=== PATIENT | female | born 1975 | race Caucasian/White ===

== ENCOUNTER 2017-08-11 10:28 | Inpatient (IN) | payer BC, OTHER ==
[~2017-08-11] VITALS: Ht 172.7 cm; Wt 78.9 kg
--- NOTE | 2017-08-11 10:35 | NUR ---
DOMINGA AND BRANDY FROM [facility] SP SEIZURE-- REPORTED HITTING HEAD ON THE FLOOR. PATIENT IS AAO4. APPEARS IN NO APPARENT DISTRESS., RESPIRATION EVEN AND UNLABORED. SKIN IS WARM TO TOUCH AND NON DIAPHORETIC. AFEBRILE/
[2017-08-11] MEDS ORDERED: ONDANSETRON HCL/PF 4 MG/2 ML VIAL ONE (10:48)
[2017-08-11] MEDS ORDERED: ONDANSETRON HCL/PF 4 MG/2 ML VIAL IVP ONE (11:00)
[2017-08-11] MEDS ORDERED: IV NS 0.9% 1,000 ML BAG IV ONE (11:00)
[2017-08-11] MEDS ORDERED: Thiamine 100 MG in IV D5W 50 ML IV SCH (11:00)
[2017-08-11 11:16] LABS: BASOPHILS % (AUTO) 0.3 % (0.0-2.0); EOSINOPHILS % (AUTO) 0.8 % (0.0-6.0); HEMATOCRIT 37 % (33-45); HEMOGLOBIN 12.1 g/dL (11.5-14.8); LYMPHOCYTES # (AUTO) 0.8 /CMM (0.8-4.8); LYMPHOCYTES % (AUTO) 15.3 % (20.0-44.0); MEAN CORPUSCULAR HEMOGLOBIN 31 PG (26.0-33.0); MEAN CORPUSCULAR HGB CONC 33 g/dl (31.0-36.0); MEAN CORPUSCULAR VOLUME 95 fL (82-100); MONOCYTES # (AUTO) 0.3 /CMM (0.1-1.30); MONOCYTES % (AUTO) 6.2 % (2.0-12.0); NEUTROPHILS # (AUTO) 4.1 /CMM (1.8-8.9); NEUTROPHILS % (AUTO) 77.4 % (43.0-81.0); PLATELET COUNT (AUTO) 130 /CMM (150-450); RED BLOOD CELL COUNT(AUTO) 3.88 MIL/uL (4.0-5.2); WHITE BLOOD COUNT (AUTO) 5.2 K/uL (4.3-11.0)
[2017-08-11 11:26] LABS: CALCIUM, SERUM 9.2 mg/dL (8.5-10.1); CARBON DIOXIDE 22 mmol/L (21-32); CHLORIDE 98 mmol/L (98-107); CREATININE 0.9 mg/dL (0.6-1.3); GLUCOSE 175 mg/dL (74-106); SODIUM SERUM 133 mmol/L (136-145); UREA NITROGEN, BLOOD 13 mg/dL (7-18)
[2017-08-11 11:30] LABS: INR 0.93 (0.87-1.13); PROTHROMBIN TIME 9.7 SECS (9.5-12.7)
[2017-08-11 11:31] LABS: ALANINE AMINOTRANSFERASE 64 U/L (12-78); ALBUMIN 3.9 g/dL (3.4-5.0); ALCOHOL, BLOOD < 3 mg/dL (0-0); ALKALINE PHOSPHATASE 64 U/L (46-116); ASPARTATE AMINOTRANSFERASE 62 U/L (15-37); BILIRUBIN,DIRECT 0.3 mg/dL (0.0-0.2); BILIRUBIN,TOTAL 0.7 mg/dL (0.2-1.0); TOTAL PROTEIN, SERUM 7.6 g/dL (6.4-8.2)
[2017-08-11] MEDS ORDERED: LORAZEPAM INJ 2 MG/ML VIAL ONE ×2 (11:54→14:27)
[2017-08-11] MEDS ORDERED: POTASSIUM CHLORIDE 20 MEQ TAB.PRT.SR PO ONE ×2 (12:00→12:04)
[2017-08-11] MEDS ORDERED: LORAZEPAM INJ 2 MG/ML VIAL IV ONE ×3 (12:00→16:00)
[2017-08-11] MEDS ORDERED: METH250T11 PO (12:02)
[2017-08-11] MEDS ORDERED: Magnesium 1GM/D5W 100ML PREMIX 200 ML IV ONE (12:04)
[2017-08-11] MEDS: Magnesium 1GM/D5W 100ML PREMIX 100 ML IV SCH ×2 (12:12→13:15)
--- NOTE | 2017-08-11 14:33 | NUR ---
CALLED DR GÓMEZ FOR PANEL
--- NOTE | 2017-08-11 15:36 | NUR ---
REPORT GIVEN TO ARMAND SANDERS
--- NOTE | 2017-08-11 15:41 | NUR ---
REPORT GIVEN TO ARMAND CARTAGENA FOR POOL TELE 108.
[2017-08-11 16:00] VITALS: BP 136/83
[2017-08-11] MEDS ORDERED: MAG HYDROX/AL HYDROX/SIMETH 30 ML UDC PO PRN (16:00)
[2017-08-11] MEDS ORDERED: MAGNESIUM HYDROXIDE 30 ML UDC PO PRN (16:00)
[2017-08-11] MEDS ORDERED: Z GUARD REMEDY 2 OZ OINT TP PRN (16:00)
[2017-08-11] MEDS ORDERED: ONDANSETRON HCL/PF 4 MG/2 ML VIAL IVP PRN (16:00)
[2017-08-11] MEDS ORDERED: ZOLPIDEM TARTRATE 5 MG TABLET PO PRN (16:00)
--- NOTE | 2017-08-11 16:00 | NUR ---
RN NOTES RECEIVED PATIENT FROM ER ALERT, AWAKE, ORIENTED X4 WITH BREATHING NORMAL, EVEN AND UNLABORED. NO SOB NOTED. NO ACUTE DISTRESS NOTED. KEPT CLEAN, DRY AND COMFORTABLE. ALL NEEDS ATTENDED. SAFETY MEASURE OBSERVED. CALL LIGHT WITH IN REACH. WILL CONT TO MONITOR.
[2017-08-11] MEDS: METHYLDOPA (250MG) 250 MG TABLET PO SCH (16:53)
[2017-08-11] MEDS: IV NS 0.9% 1,000 ML IV PRN (17:13)
[2017-08-11] MEDS: ACETAMINOPHEN 325 MG TABLET PO PRN (18:51)
--- NOTE | 2017-08-11 18:57 | NUR ---
RN NOTES PATIENT ENDORSED TO NEXT SHIFT IN STABLE CONDITION WITH BREATHING NORMAL, EVEN AND UNLABORED, NO SOB NOTED. NO ACUTE DISTRESS NOTED. KEPT CLEAN, DRY AND COMFORTABLE. ALL NEEDS ATTENDED. SAFETY MEASURE OBSERVED. CALL LIGHT WITH IN REACH. WILL CONT TO MONITOR.
--- NOTE | 2017-08-11 19:30 | NUR ---
MS RN INITIAL NOTES RECEIVED PATIENT AWAKE A/OX4, ABLE TO MAKE NEEDS KNOWN. SPEECH SHAKY BUT UNDERSTANDABLE. C/O 8/10 HEADACHE. DENIES N/V. SKIN WARM AND DRY TO TOUCH. STEADY AMBULATION. WITH IVF RUNNING. INFORMED TO USE CALL LIGHT TO CALL FOR ASSISTANCE. PATIENT VERBALIZED UNDERSTANDING. SIDE RAILS UP AND LOCKED. BED KEPT AT LOWEST POSITION. CALL LIGHT KEPT WITHIN EASY REACH. WILL CONTINUE TO MONITOR.
--- NOTE | 2017-08-11 19:33 | NUR ---
RN NOTE. RECEIVED THE PT REST ON THE BED. AWAKE, ALERT, FOLLOW COMMANDS. PT ON ROOM AIR. SAT 98%. IV LT HAND 22G. IVF NS 100ML/H. SEIZURE PRECAUTION INSTATED. . WILL CONTINUE TO MONITOR VITALS.
[2017-08-11 20:00] VITALS: BP 122/75
[2017-08-11] MEDS: LORAZEPAM 1 MG TABLET PO PRN (20:29)
[2017-08-11] MEDS: HYDROCODONE/APAP 5/325MG 1 EACH TABLET PO PRN (21:29)
[2017-08-12] MEDS: IV NS 0.9% 1,000 ML IV PRN ×3 (02:42→22:21)
[2017-08-12] MEDS: LORAZEPAM 1 MG TABLET PO PRN ×5 (02:46→21:00)
[2017-08-12 04:00] VITALS: BP 120/75
[2017-08-12] MEDS: HYDROCODONE/APAP 5/325MG 1 EACH TABLET PO PRN ×2 (05:59→09:55)
[2017-08-12 06:26] LABS: BASOPHILS % (AUTO) 0.6 % (0.0-2.0); EOSINOPHILS # (AUTO) 0.1 /CMM (0.0-0.7); EOSINOPHILS % (AUTO) 2.7 % (0.0-6.0); HEMATOCRIT 31 % (33-45); HEMOGLOBIN 10.5 g/dL (11.5-14.8); LYMPHOCYTES # (AUTO) 1.9 /CMM (0.8-4.8); LYMPHOCYTES % (AUTO) 45.9 % (20.0-44.0); MEAN CORPUSCULAR HEMOGLOBIN 33 PG (26.0-33.0); MEAN CORPUSCULAR HGB CONC 34 g/dl (31.0-36.0); MEAN CORPUSCULAR VOLUME 95 fL (82-100); MONOCYTES # (AUTO) 0.3 /CMM (0.1-1.30); MONOCYTES % (AUTO) 6.2 % (2.0-12.0); NEUTROPHILS # (AUTO) 1.8 /CMM (1.8-8.9); NEUTROPHILS % (AUTO) 44.6 % (43.0-81.0); PLATELET COUNT (AUTO) 112 /CMM (150-450); RDW COEFFICIENT OF VARIATION 12.9 (11.5-15.0); RED BLOOD CELL COUNT(AUTO) 3.24 MIL/uL (4.0-5.2); WHITE BLOOD COUNT (AUTO) 4.1 K/uL (4.3-11.0)
[2017-08-12 06:46] LABS: CALCIUM, SERUM 8.1 mg/dL (8.5-10.1); CREATININE 0.6 mg/dL (0.6-1.3); MAGNESIUM 1.8 mg/dL (1.8-2.4); PHOSPHORUS 3.5 mg/dL (2.5-4.9); POTASSIUM 3.6 mmol/L (3.5-5.1)
--- NOTE | 2017-08-12 07:52 | NUR ---
MS RN CLOSING NOTES NO SIGNIFICANT CHANGES OVERNIGHT. DENIES SOB, DENIES N/V. NO SEIZURE ACTIVITY. ALL NEEDS ANTICIPATED AND MET. PAIN MANAGED NEEDED. PATIENT VERBALIZED REQUEST FOR STD PANEL, MORNING SHIFT NURSE MADE AWARE OF PATIENTS REQUEST. INFORMED PATIENT TO LET MD KNOW UPON ROUNDS. IVF RUNNING. SIDE RAILS UP AND LOCKED. BED KEPT AT LOWEST POSITION. CALL LIGHT KEPT WITHIN EASY REACH. CONTINUITY OF CARE ENDORSED TO AM NURSE.
[2017-08-12 08:00] VITALS: BP 128/89
--- NOTE | 2017-08-12 08:00 | NUR ---
MS RN INITIAL NOTES RN RECEIVED PATIENT AWAKE A/OX4, PT ABLE TO MAKE NEEDS KNOWN. PT SPEECH CHOPPY BUT RN ABLE TO UNDERSTAND. PT C/O MILD HEADACHE STATES THE NORCO HELPS . DENIES N/V. SKIN WARM AND DRY TO TOUCH. PT IVF RUNNING. PT INFORMED TO USE CALL LIGHT TO CALL FOR ASSISTANCE. PATIENT VERBALIZED UNDERSTANDING. SIDE RAILS UP AND LOCKED. BED KEPT AT LOWEST POSITION. CALL LIGHT KEPT WITHIN EASY REACH. WILL CONTINUE TO MONITOR. PATIENT ALSO REQUEST ATIVAN AND NORCO WHEN AVAILABLE
[2017-08-12] MEDS: THIAMINE HCL 100 MG TABLET PO SCH (08:55)
[2017-08-12] MEDS: FOLIC ACID 1 MG TABLET PO SCH (08:55)
[2017-08-12] MEDS: METHYLDOPA (250MG) 250 MG TABLET PO SCH ×3 (08:58→17:28)
[2017-08-12] MEDS: ACETAMINOPHEN 325 MG TABLET PO PRN (10:34)
[2017-08-12 12:00] VITALS: BP 134/89
[2017-08-12] MEDS: FAMOTIDINE (20 MG) 20 MG TABLET PO SCH (12:35)
[2017-08-12] MEDS: MULTIVITAMINS,THERAGRAN 1 UDTAB TABLET PO SCH (13:57)
[2017-08-12] MEDS: HYDROCODONE/APAP 10/325MG 1 EA TABLET PO PRN ×2 (13:58→19:36)
[2017-08-12 16:00] VITALS: BP 135/89
--- NOTE | 2017-08-12 16:00 | NUR ---
RN NOTE PATIENT IS REQUEST PRN PAIN MEDICATION AND ALSO ANTI ANXIETY MEDICATION AROUND THE CLOCK , RN PROVIDES PATIENT WITH EDUCATION IN REGARDS TO NON PHARMACOLOGICAL WAYS TO HELP PAIN RELIEF. PATIENT STATES SHE WILL CONTINUE TO REQUEST THE MEDICATION PRN WHEN IT IS TIME FOR THE PAIN MEDICATION ADMINISTRATION RN WILL ENDORSE TO PM RN , RN HAS NOTIFIED DIRECTOR OF MOBILE MARKETING NILE AND DIRECTOR OF MOBILE MARKETING INTERNS IN REGARDS TO PATIENT DRUG SEEKING
[2017-08-12] MEDS: DOCUSATE SODIUM 100 MG CAPSULE PO SCH (17:28)
--- NOTE | 2017-08-12 19:09 | NUR ---
MS RN CLOSING NOTES NO SIGNIFICANT CHANGES THROUGHOUT THE DAY DENIES SOB, DENIES N/V. NO SEIZURE ACTIVITY. ALL NEEDS ANTICIPATED AND MET. PAIN MANAGED NEEDED PATIENT PAIN MEDICATION INCREASED PER HER REQUEST . IVF RUNNING. SIDE RAILS UP AND LOCKED. BED KEPT AT LOWEST POSITION. CALL LIGHT KEPT WITHIN EASY REACH. CONTINUITY OF CARE ENDORSED TO PM NURSE.
--- NOTE | 2017-08-12 19:30 | NUR ---
MS RN INITIAL NOTES RECEIVED PATIENT AWAKE A/OX4, ABLE TO MAKE NEEDS KNOWN. APPEARS ANXIOUS. C/O /10 HEADACHE PAIN, LITTLE NAUSEA. DENIES SOB. EXPLAINED SIDE EFFECTS OF NARCOTICS, PATIENT VERBALIZED UNDERSTANDING. PER REPORT, PATIENT HAS BEEN ASKING FOR ATIVAN AND NORCO AROUND THE CLOCK. SKIN WARM AND DRY TO TOUCH. IVF RUNNING. SIDE RAILS UP AND LOCKED. BED KEPT AT LOWEST POSITION. CALL LIGHT KEPT WITHIN EASY REACH. WILL CONTINUE TO MONITOR.
[2017-08-12 20:00] VITALS: BP 135/85
[2017-08-13] MEDS: HYDROCODONE/APAP 10/325MG 1 EA TABLET PO PRN ×6 (00:57→22:45)
[2017-08-13 04:00] VITALS: BP 145/77
--- NOTE | 2017-08-13 06:24 | NUR ---
MS RN CLOSING NOTES NO SIGNIFICANT CHANGES OVERNIGHT. PAIN MONITORED AND MANAGED NEEDED. NO SOB. NO SEIZURE ACTIVITY NOTED. IVF RUNNING. ALL NEEDS ANTICIPATED AND MET. SIDE RAILS UP AND LOCKED. BED KEPT AT LOWEST POSITION. CALL LIGHT KEPT WITHIN EASY REACH. WILL ENDORSE CONTINUITY OF CARE TO AM NURSE.
[2017-08-13 06:35] LABS: BASOPHILS % (AUTO) 0.8 % (0.0-2.0); EOSINOPHILS % (AUTO) 2.3 % (0.0-6.0); HEMATOCRIT 30 % (33-45); HEMOGLOBIN 10.4 g/dL (11.5-14.8); LYMPHOCYTES % (AUTO) 50.3 % (20.0-44.0); MEAN CORPUSCULAR HEMOGLOBIN 33 PG (26.0-33.0); MEAN CORPUSCULAR HGB CONC 34 g/dl (31.0-36.0); MEAN CORPUSCULAR VOLUME 95 fL (82-100); MONOCYTES % (AUTO) 4.4 % (2.0-12.0); NEUTROPHILS # (AUTO) 1.3 /CMM (1.8-8.9); NEUTROPHILS % (AUTO) 42.2 % (43.0-81.0); PLATELET COUNT (AUTO) 104 /CMM (150-450); RED BLOOD CELL COUNT(AUTO) 3.18 MIL/uL (4.0-5.2); WHITE BLOOD COUNT (AUTO) 3.2 K/uL (4.3-11.0)
[2017-08-13 06:36] LABS: EOSINOPHILS # (AUTO) 0.1 /CMM (0.0-0.7); LYMPHOCYTES # (AUTO) 1.6 /CMM (0.8-4.8); MONOCYTES # (AUTO) 0.1 /CMM (0.1-1.30)
[2017-08-13 06:47] LABS: CALCIUM, SERUM 8.1 mg/dL (8.5-10.1); CREATININE 0.6 mg/dL (0.6-1.3); MAGNESIUM 1.6 mg/dL (1.8-2.4); POTASSIUM 3.6 mmol/L (3.5-5.1)
--- NOTE | 2017-08-13 07:30 | NUR ---
MS RN INITIAL NOTES RN RECEIVED PATIENT AWAKE A/OX4 IN BED , PT ABLE TO MAKE NEEDS KNOWN. PT SPEECH CLEAR WITH MINIMAL STUTTER BUT RN ABLE TO UNDERSTAND. PT C/O MILD HEADACHE. DENIES NAUSEA AT THIS TIME. PT SKIN WARM AND DRY TO TOUCH. PT IVF RUNNING. PT INFORMED TO USE CALL LIGHT TO CALL FOR ASSISTANCE. PATIENT VERBALIZED UNDERSTANDING. SIDE RAILS UP AND LOCKED. BED KEPT AT LOWEST POSITION. CALL LIGHT KEPT WITHIN EASY REACH. RN WILL CONTINUE TO MONITOR THROUGHOUT THE DAY .
[2017-08-13 08:00] VITALS: BP 166/78
[2017-08-13] MEDS: FAMOTIDINE (20 MG) 20 MG TABLET PO SCH (08:31)
[2017-08-13] MEDS: METHYLDOPA (250MG) 250 MG TABLET PO SCH ×3 (08:31→17:58)
[2017-08-13] MEDS: THIAMINE HCL 100 MG TABLET PO SCH (08:31)
[2017-08-13] MEDS: FOLIC ACID 1 MG TABLET PO SCH (08:31)
[2017-08-13] MEDS: MULTIVITAMINS,THERAGRAN 1 UDTAB TABLET PO SCH (08:31)
[2017-08-13] MEDS: DOCUSATE SODIUM 100 MG CAPSULE PO SCH ×2 (08:31→17:58)
[2017-08-13] MEDS: LORAZEPAM 1 MG TABLET PO PRN ×2 (08:39→17:58)
[2017-08-13] MEDS: IV NS 0.9% 1,000 ML IV PRN ×2 (08:39→23:09)
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
[2017-08-13] MEDS: Magnesium 1GM/D5W 100ML PREMIX 100 ML IV SCH ×2 (12:04→13:45)
[2017-08-13 16:00] VITALS: BP 130/65
--- NOTE | 2017-08-13 18:45 | NUR ---
MS RN CLOSING NOTES NO SIGNIFICANT CHANGES THROUGHOUT THE DAY DENIES SOB, DENIES N/V. NO SEIZURE ACTIVITY. ALL NEEDS ANTICIPATED AND MET. PAIN MANAGED NEEDED IVF RUNNING. SIDE RAILS UP AND LOCKED. BED KEPT AT LOWEST POSITION. CALL LIGHT KEPT WITHIN EASY REACH. CONTINUITY OF CARE ENDORSED TO PM NURSE.
--- NOTE | 2017-08-13 19:05 | NUR ---
RN OPENING NOTES RECEIVED REPORT FROM STEPHANY ACUNA. PATIENT A/A/O X4, ABLE TO MAKE NEEDS KNOWN. BREATHING EVEN & UNLABORED, DENIES ANY SOB OR DIFFICULTY BREATHING. PULSES PRESENT. ON ROOM AIR. RIGHT FOREARM IV #20 INTACT & PATENT W/ DRESSING CDI W/ IVF NS @ 100 ML/HR. PATIENT IS ABLE TO AMBULATE W/ BRP. SAFETY MEASURES IN PLACE W/ SIDE RAILS UP, BED LOCKED IN LOWEST POSITION & CALL LIGHT WITHIN REACH. @ BEDSIDE. WILL CONTINUE TO MONITOR.
[2017-08-13 20:00] VITALS: BP 163/94
[2017-08-14 04:00] VITALS: BP 145/87
[2017-08-14] MEDS: LORAZEPAM 1 MG TABLET PO PRN ×3 (04:27→16:34)
[2017-08-14] MEDS: HYDROCODONE/APAP 10/325MG 1 EA TABLET PO PRN ×3 (04:27→13:46)
[2017-08-14 06:51] LABS: CALCIUM, SERUM 8.5 mg/dL (8.5-10.1); CREATININE 0.6 mg/dL (0.6-1.3); MAGNESIUM 1.7 mg/dL (1.8-2.4); POTASSIUM 3.2 mmol/L (3.5-5.1)
--- NOTE | 2017-08-14 07:45 | NUR ---
RN INITIAL NOTE RECEIVED PT IN NO ACUTE DISTRESS IN BED. PT IS A/O X 4 AND ABLE TO MAKE NEEDS KNOWN. PT NOT C/O ANY SOB, DIFFICULTY BREATHING OR PAIN AT THIS TIME. PT HAS RFA 20G THAT IS CLEAN DRY INTACT AND PATENT WITH NS @ 100 ML/HR. BED IN LOW LOCK POSITION WITH LOW LOCK POSITION WITH RIALS UP X 2. CALL LIGHT WITHIN REACH AND ALL SAFETY MEASURES ENSURED AND CARRIED OUT. WILL CONTINUE TO MONITOR PT.
[2017-08-14 08:00] VITALS: BP 142/92
[2017-08-14] MEDS: METHYLDOPA (250MG) 250 MG TABLET PO SCH ×3 (09:00→16:35)
[2017-08-14] MEDS: FAMOTIDINE (20 MG) 20 MG TABLET PO SCH (09:01)
[2017-08-14] MEDS: THIAMINE HCL 100 MG TABLET PO SCH (09:01)
[2017-08-14] MEDS: FOLIC ACID 1 MG TABLET PO SCH (09:01)
[2017-08-14] MEDS: MULTIVITAMINS,THERAGRAN 1 UDTAB TABLET PO SCH (09:01)
[2017-08-14] MEDS: DOCUSATE SODIUM 100 MG CAPSULE PO SCH ×2 (09:03→16:34)
[2017-08-14] MEDS: IV NS 0.9% 1,000 ML IV PRN (09:35)
[2017-08-14] MEDS: Magnesium 1GM/D5W 100ML PREMIX 100 ML IV SCH ×2 (10:36→11:34)
[2017-08-14] MEDS: POTASSIUM CHLORIDE 20 MEQ TAB.PRT.SR PO SCH ×2 (10:37→11:34)
--- NOTE | 2017-08-14 15:33 | NUR ---
RN NOTE TRANSFER CARE TO TYLER RN FOR CONTINUITY OF CARE.
[2017-08-14 16:35] VITALS: BP 143/83
--- NOTE | 2017-08-14 16:43 | NUR ---
RN MS CLOSING NOTE PT RECEIVED IN NO ACUTE DISTRESS AT THIS TIME. IVF AND IV D/C. ATIVAN GIVEN AT 1630 WELL 1700 MEDICATIONS BEFORE LEAVING WITH . ALL D/C PAPERS SIGNED. VITALS WNL. ALL QUESTIONS ANSWERED AND INFO GIVEN. WILL DRIVE PATIENT HOME.
== END 2017-08-14 16:55 | disposition home or self-care (01) | DRG 896 ==
LOC: ER 10:33 → TELE1 15:48 → MEDSG1 21:33
PROVIDERS: ADMIT Internal Medicine; ATTEND Internal Medicine
DX: F10.239 Alcohol dependence with withdrawal, unspecified (principal); K85.90 Acute pancreatitis without necrosis or infection, unspecified; F10.229 Alcohol dependence with intoxication, unspecified; K70.10 Alcoholic hepatitis without ascites; E83.42 Hypomagnesemia; E87.1 Hypo-osmolality and hyponatremia; G40.89 Other seizures; W19.XXXA Unspecified fall, initial encounter; I10 Essential (primary) hypertension; Y90.0 Blood alcohol level of less than 20 mg/100 ml; D63.8 Anemia in other chronic diseases classified elsewhere; K59.00 Constipation, unspecified; E86.1 Hypovolemia; E87.6 Hypokalemia; H52.10 Myopia, unspecified eye; Y93.9 Activity, unspecified; Y92.149 Unspecified place in prison as the place of occurrence of the external cause
CPT/HCPCS: 36415; 70450-TC; 80048-TC; 80076-TC; 80305; 83735-TC; 84100-TC; 84703-TC; 85025-TC; 85730-TC; 86592; 87081-TC; 95819-TC; G0480; J2060; J2405; J3411; J3475; J7030; J7060; Z7610